=== PATIENT | female | born 1950 | race Caucasian/White ===

== ENCOUNTER 2021-02-27 10:04 | Emergency (ER) | payer MEDICARE ==
[~2021-02-27] VITALS: Ht 152.4 cm; Wt 59.1 kg
[~2021-02-27 10:04] MED LIST: LEVO50 PO; SERT25TA PO
[2021-02-27] MEDS ORDERED: PROPARACAINE HCL 0.5% 15 ML OPHTHALMIC SOLUTION OD ONE (10:45)
[2021-02-27] MEDS ORDERED: HYDROCODONE/ACETAMINOPHEN 5-325 MG TABLET PO ONE (10:45)
[2021-02-27] MEDS ORDERED: PILOCARPINE HCL 2% 15 ML OPHTHALMIC SOLUTION OD ONE (11:00)
[2021-02-27 11:21] LABS: BASOPHILS % (AUTO) 0.2 % (0.0-2.0); EOSINOPHILS % (AUTO) 0.1 % (1.0-6.0); HEMATOCRIT 37.8 % (36-46); HEMOGLOBIN 12.7 g/dL (12.0-16.0); LYMPHOCYTES # (AUTO) 1.9 K/uL (1.0-4.8); LYMPHOCYTES % (AUTO) 30.3 % (22.0-44.0); MEAN CORPUSCULAR HEMOGLOBIN 31.1 pg (26.0-34.0); MEAN CORPUSCULAR HGB CONC 33.6 G/dL (31.0-37.0); MEAN CORPUSCULAR VOLUME 93 fL (80-100); MONOCYTES # (AUTO) 0.5 K/uL (0.1-1.0); MONOCYTES % (AUTO) 7.4 % (2.0-9.0); NEUTROPHILS # (AUTO) 3.9 K/uL (1.8-7.7); PLATELET COUNT (AUTO) 196 K/uL (150-450); RED BLOOD CELL COUNT(AUTO) 4.09 MIL/uL (4.00-5.20); RED CELL DISTRIBUTION WIDTH 14.7 % (11.5-14.5)
[2021-02-27 11:28] LABS: ANION GAP 4 mmol/L (8-16); CALCIUM, TOTAL 8.8 mg/dL (8.8-10.5); CARBON DIOXIDE 28 mmol/L (22-29); CHLORIDE 104 mmol/L (98-107); CREATININE 0.81 mg/dL (0.60-1.30); GLUCOSE,RANDOM 85 mg/dL (70-110); POTASSIUM 4.3 mmol/L (3.5-5.1); SODIUM SERUM 136 mmol/L (136-145); UREA NITROGEN, BLOOD 17 mg/dL (7-18)
[2021-02-27 11:28] LABS: COVID AG,FIA SOURCE NASOPHARYNGEAL
[2021-02-27 11:29] LABS: GLOMERULAR FILTR. RATE CALC > 60 mL/min (>60)
[2021-02-27 11:30] LABS: PROTHROMBIN TIME 10.3 SEC (9.4-11.6)
[2021-02-27] MEDS ORDERED: TIMOLOL MALEATE 0.5% 5 ML OPHTHALMIC SOLUTION OD ONE (11:30)
[2021-02-27 11:42] LABS: ALANINE AMINOTRANSFERASE 15 U/L (12-78); ALBUMIN 3.6 g/dL (3.4-5.0); ALKALINE PHOSPHATASE 110 U/L (46-116); ASPARTATE AMINOTRANSFERASE 15 U/L (15-37); BILIRUBIN,TOTAL 0.3 mg/dL (0.1-1.0); TOTAL PROTEIN, SERUM 6.8 g/dL (6.4-8.2)
[2021-02-27] MEDS ORDERED: BRINZOLAMIDE 1% 10 ML OPHTHALMIC SUSPENSION OD ONE (13:15)
[2021-02-27] MEDS ORDERED: LATANOPROST 0.005% 2.5 ML OPHTHALMIC SOLUTION OD ONE (13:15)
[2021-02-27] MEDS ORDERED: BRIMONIDINE TARTRATE 0.2% 5 ML OPHTHALMIC SOLUTION OD ONE (13:15)
[2021-02-27 17:07] VITALS: BP 131/74
== END 2021-02-27 18:23 | disposition short-term general hospital (02) ==
LOC: EMS 10:12
DX: H40.20X0 Unspecified primary angle-closure glaucoma, stage unspecified (principal); F17.210 Nicotine dependence, cigarettes, uncomplicated; Z79.899 Other long term (current) drug therapy; Z20.822 Contact with and (suspected) exposure to COVID-19
CPT/HCPCS: 80053; 85025; 85610; 99291